=== PATIENT | female | born 1980 | race Hispanic/Latino ===

== ENCOUNTER 2018-02-09 20:07 | Emergency (ER) | payer BC, OTHER ==
--- NOTE | 2018-02-09 20:21 | ED PDOC ---
HPI: Psych/Substance Abuse Time Seen by Provider: 02/09/18 20:14 Chief Complaint (Nursing): Alcohol Ingestion Chief Complaint (Provider): Alcho History Per: Patient History/Exam Limitations: no limitations Onset/Duration Of Symptoms: Mins Additional Complaint(s): 37 year old female presents to the ED via EMS for alcohol use. 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 She was out for dinner at 15:45 where she had 3 shots of alcohol. Patient returned back to school where someone smelled alcohol on her. EMS was called. Of note, patient reports she was in rehab a few months ago. PMD: none Past Medical History Reviewed: Historical Data, Nursing Documentation, Vital Signs Vital Signs: Last Vital Signs Temp 98.5 F 02/09/18 20:10 Pulse 79 02/09/18 20:10 Resp 16 02/09/18 20:10 BP 139/95 H 02/09/18 20:10 Pulse Ox 100 02/09/18 20:10 - Medical History PMH: No Chronic Diseases - Surgical History Surgical History: No Surg Hx - Family History Family History: States: Unknown Family Hx - Home Medications Home Medications: Ambulatory Orders Medication Instructions Recorded Ibuprofen [Motrin] 600 mg PO Q6H PRN #20 tab 03/25/17 - Allergies Allergies/Adverse Reactions: Allergies Allergy/AdvReac Type Severity Reaction Status Date / Time No Known Allergies Allergy Verified 03/25/17 09:33 Review of Systems ROS Statement: Except As Marked, All Systems Reviewed And Found Negative Physical Exam - Reviewed Nursing Documentation Reviewed: Yes Vital Signs Reviewed: Yes - Physical Exam Appears: Positive for: Non-toxic, No Acute Distress Head Exam: Positive for: ATRAUMATIC, NORMOCEPHALIC Skin: Positive for: Normal Color, Warm, Dry Eye Exam: Positive for: Normal appearance Neck: Positive for: Normal, Painless ROM Cardiovascular/Chest: Positive for: Regular Rate, Rhythm. Negative for: Murmur Respiratory: Positive for: Normal Breath Sounds. Negative for: Wheezing, Respiratory Distress Extremity: Positive for: Normal ROM Neurologic/Psych: Positive for: Alert, Oriented (x3), Gait (steady). Negative for: Motor/Sensory Deficits - ECG O2 Sat by Pulse Oximetry: 100 (RA) Pulse Ox Interpretation: Normal Medical Decision Making Medical Decision Making: Initial Impression: Alcohol use Initial Plan: 20:19 Upon provider evaluation patient is feeling, is medically stable, and requires no further treatment in the ED at this time. There is agreement to discharge plan. Return if symptoms persist or worsen. Scribe Attestation: Documented by Ja Peña acting as a scribe for Angelina Tadeo MD. Provider Scribe Attestation: All medical record entries made by the Scribe were at my direction and personally dictated by me. I have reviewed the chart and agree that the record accurately reflects my personal performance of the history, physical exam, medical decision making, and the department course for this patient. I have also personally directed, reviewed, and agree with the discharge instructions and disposition. Disposition - Clinical Impression Clinical Impression: Alcohol use - Disposition Referrals: Alcoholics Anonymous [Outside] Disposition: Routine/Home Disposition Time: 20:19 Condition: STABLE Additional Instructions: FOLLOW-UP WITH PMD WITHIN 2 DAYS FOR REEVALUATION. Instructions: Alcohol Use - When Is Drinking a Problem? Forms: [employer] (Telugu)
[2018-02-09 21:22] VITALS: BP 123/74; PULSE 72; RESP 17; TEMP 98.6; O2SAT 98
== END 2018-02-09 20:41 | disposition home or self-care (01) ==
LOC: H.ER 20:07
DX: F10.10 Alcohol abuse, uncomplicated (principal)